=== PATIENT | female | born 1990 | race African-American/Black ===

== ENCOUNTER 2019-11-26 02:02 | Emergency (ER) | payer SELFPAY ==
--- NOTE | 2019-11-26 02:39 | ER ---
Nurse's Notes [facility] Name: Sunitha Alonso Age: 29 yrs Sex: Female : 1990 Arrival Date: 11/26/2019 Time: 02:09 Bed 7 Private MD: Diagnosis: Other abdominal pain Presentation: 11/25 02:00 Chief complaint: EMS states: patient complaint of stomach pain sharp stabbing pain rr5 started 45 minutes prior to arrival. she is 16 weeks . this her 7th 4 alive. 02:00 Coronavirus screen: The patient has NOT traveled to [place] in the past 14 days. Proceed rr5 with normal triage procedures. Ebola Screen: Patient negative for fever greater than or equal to 101.5 degrees Fahrenheit, and additional compatible Ebola Virus Disease symptoms Patient denies exposure to infectious person. Patient denies travel to an Ebola-affected area in the 21 days before illness onset. Initial Sepsis Screen: Does the patient meet any 2 criteria? No. Patient's initial sepsis screen is negative. Does the patient have a suspected source of infection? No. Patient's initial sepsis screen is negative. Risk Assessment: Do you want to hurt yourself or someone else? Patient reports no desire to harm self or others. 02:00 Method Of Arrival: EMS: [facility] rr5 02:00 Acuity: DAPHNE 3 rr5 02:00 Onset of symptoms was November 26, 2019. 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 - Social history:: Smoking status: unknown Patient/guardian denies using alcohol, street drugs. Screenin:25 Abuse screen: Denies threats or abuse. Denies injuries from another. Nutritional rr5 screening: No deficits noted. Tuberculosis screening: No symptoms or risk factors identified. Fall Risk None identified. Total Parisi Fall Scale indicates No Risk (0-24 pts). Assessment: 02:00 General: Appears in no apparent distress. uncomfortable, Behavior is calm, cooperative, rr5 appropriate for age. 02:00 Reassessment:. Pain: Complains of pain in abdomen Pain does not radiate. Pain currently rr5 is 8 out of 10 on a pain scale. Quality of pain is described as sharp, stabbing, Pain began gradually, 1 hour ago. Is intermittent. Neuro: Level of Consciousness is awake, alert, obeys commands, Oriented to person, place, time, situation, Appropriate for age. Cardiovascular: Capillary refill < 3 seconds Patient's skin is warm and dry. Respiratory: Airway is patent Respiratory effort is even, unlabored, Respiratory pattern is regular, symmetrical. GI: Abdomen is round Bowel sounds present X 4 quads. Abd is soft X 4 quads Reports lower abdominal pain, upper abdominal pain, Patient currently denies nausea, vomiting. : Denies pain vaginal bleeding. EENT: No signs and/or symptoms were reported regarding the EENT system. Derm: Skin is intact, is healthy with good turgor, Skin temperature is warm. Musculoskeletal: Circulation, motion, and sensation intact. Capillary refill < 3 seconds. 02:20 Reassessment: ultrasound at bedside done by dr. stanley. rr5 02:48 Reassessment: Patient appears in no apparent distress at this time. Patient is alert, rr5 oriented x 3, equal unlabored respirations, skin warm/dry/pink. discharge instruction given and explained without complaints made. Vital Signs: 02:00 BP 120 / 84; Pulse 79; Resp 16; Temp 98.5; Pulse Ox 99% ; Weight 68.04 kg; Height 5 ft. rr5 5 in. (165.10 cm); Pain 8/10; 02:40 BP 117 / 70; Pulse 75; Resp 18; Pulse Ox 99% on R/A; rr5 02:00 Body Mass Index 24.96 (68.04 kg, 165.10 cm) rr5 Vitals: 02:24 Heart Tones 140 bpm . rr5 ED Course: 02:05 Arm band placed on right wrist. rr5 02:09 Patient arrived in ED. rr5 02:10 Patient has correct armband on for positive identification. Placed in gown. Bed in low rr5 position. Call light in reach. 02:10 Pulse ox on. NIBP on. rr5 02:12 Vince Sutton PA is PHCP. [facility] 02:12 Massimo Stanley MD is Attending Physician. mamadou 02:13 Triage completed. rr5 02:15 Boston Sue, RN is Primary Nurse. rr5 02:30 Urine collected: clean catch specimen, clear. rr5 02:48 No provider procedures requiring assistance completed. Patient did not have IV access rr5 during this emergency room visit. Administered Medications: No medications were administered Outcome: 02:38 Discharge ordered by MD. jm 02:48 Discharged to home ambulatory, with family. rr5 02:48 Condition: stable 02:48 Discharge instructions given to patient, Instructed on discharge instructions, follow up and referral plans. Demonstrated understanding of instructions, follow-up care. 02:52 Patient left the ED. rr5 Signatures: Vince Sutton PA PA jmm Roque, Raymond, RN RN rr5
--- NOTE | 2019-11-26 02:39 | EDPHYS ---
Physician Documentation [facility] Name: Sunitha Alonso Age: 29 yrs Sex: Female : 1990 Arrival Date: 11/26/2019 Time: 02:09 Bed 7 Private MD: ED Physician Massimo Stanley HPI: 11/25 02:12 This 29 yrs old Female presents to ER via EMS with complaints of Abdominal Pain. [facility] 02:12 The patient presents with abdominal pain. Onset: The symptoms/episode began/occurred jmm acutely, just prior to arrival. The symptoms do not radiate. Associated signs and symptoms: Pertinent negatives: nausea and vomiting, diarrhea, fever, vomiting. The symptoms are described as achy, sharp. Modifying factors: The symptoms are alleviated by nothing, the symptoms are aggravated by. The patient has experienced similar episodes in the past. This is a 29 year old that presents to the ED with complaints of diffuse abdominal pain which awoke her just prior to arrival. patient states pain is similar, but not as intense, as a previous miscarriage. Patient denies vomiting, denies diarrhea, denies fever, denies vaginal bleeding, denies dysuria. . 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 - Social history:: Smoking status: unknown Patient/guardian denies using alcohol, street drugs. ROS: 02:12 Constitutional: Negative for fever, chills, and weight loss, Cardiovascular: Negative jmm for chest pain, palpitations, and edema, Respiratory: Negative for shortness of breath, cough, wheezing, and pleuritic chest pain. 02:12 Abdomen/GI: Positive for abdominal pain. 02:12 All other systems are negative. Exam: 02:12 Constitutional: This is a well developed, well nourished patient who is awake, alert, jmm and in no acute distress. Head/Face: atraumatic. Eyes: EOMI, no conjunctival erythema appreciated ENT: Moist Mucus Membranes Neck: Trachea midline, Supple Chest/axilla: Normal chest wall appearance and motion. Cardiovascular: Regular rate and rhythm. No edema appreciated Respiratory: Normal respirations, no respiratory distress appreciated 02:12 Back: Normal ROM Skin: General appearance color normal MS/ Extremity: Moves all extremities, no obvious deformities appreciated, no edema noted to the lower extremities Neuro: Awake and alert, normal gait Psych: Behavior is normal, Mood is normal, Patient is cooperative and pleasant 02:12 Abdomen/GI: Inspection: gravid appearance, is noted, Bowel sounds: normal, Palpation: soft, in all quadrants, mild abdominal tenderness, in all quadrants. Vital Signs: 02:00 BP 120 / 84; Pulse 79; Resp 16; Temp 98.5; Pulse Ox 99% ; Weight 68.04 kg; Height 5 ft. rr5 5 in. (165.10 cm); Pain 8/10; 02:40 BP 117 / 70; Pulse 75; Resp 18; Pulse Ox 99% on R/A; rr5 02:00 Body Mass Index 24.96 (68.04 kg, 165.10 cm) rr5 Procedures: 02:24 Ultrasound: Type: OB, performed by the emergency department physician, Good rn movement, FHTs 140 BPM. Shown to patient and significant other. . MDM: 02:12 Patient medically screened. [facility] 02:36 Data reviewed: vital signs, nurses notes. Counseling: I had a detailed discussion with mamadou the patient and/or guardian regarding: the historical points, exam findings, and any diagnostic results supporting the discharge/admit diagnosis, lab results, the need for outpatient follow up, to return to the emergency department if symptoms worsen or persist or if there are any questions or concerns that arise at home. ED course: UA negative. Patient is alert and non toxic in appearance in the ED. Abdomen is soft. Normal VS. I do not currently suspect acute intraabdominal process. patient advised to follow up with pcp and otherwise given strict return precautions. patient understood and agrees with the plan of care. . 03 02:42 Order name: Urine Dipstick--Ancillary (enter results) mw2 11/25 02:13 Order name: Urine Dipstick-Ancillary (obtain specimen); Complete Time: 02:41 fanny 11/25 02:13 Order name: Heart Tones; Complete Time: 02:24 [facility] Administered Medications: No medications were administered Disposition: 03:21 Co-signature as Attending Physician, Massimo Stanley MD. rn Disposition: 11/26/19 02:38 Discharged to Home. Impression: Other abdominal pain. - Condition is Stable. - Discharge Instructions: Abdominal Pain, Adult, Abdominal Pain During . - Medication Reconciliation Form, Thank You Letter, Antibiotic Education, Prescription Opioid Use form. - Follow up: Private Physician; When: 2 - 3 days; Reason: Recheck today's complaints, Continuance of care, Re-evaluation by your physician. Signatures: Dispatcher [employer] EDWA Vince Sutton PA PA jmm Nieto, Roman, MD MD rn Roque, Raymond, RN RN rr5 Corrections: (The following items were deleted from the chart) 02:52 02:38 11/26/2019 02:38 Discharged to Home. Impression: Other abdominal pain. Condition rr5 is Stable. Forms are Medication Reconciliation Form, Thank You Letter, Antibiotic Education, Prescription Opioid Use. Follow up: Private Physician; When: 2 - 3 days; Reason: Recheck today's complaints, Continuance of care, Re-evaluation by your physician. mamadou
[2019-11-26 03:47] LABS: Urine Blood NEGATIVE (NEG); Urine Glucose NEGATIVE (NEG); Urine Protein NEGATIVE (NEG); Urine Specific Gravity >1.030 (1.005-1.030)
== END 2019-11-26 02:52 | disposition home or self-care (01) ==
LOC: ER 02:02
DX: O26.892 Other specified pregnancy related conditions, second trimester (principal); Z3A.16 16 weeks gestation of pregnancy
CPT/HCPCS: 81003; 99284

== ENCOUNTER 2020-04-08 19:59 | Inpatient (IN) | payer OTHER, SELFPAY ==
[2020-04-08] MEDS ORDERED: PENICILLIN 5 MU in NA CHLORIDE 0.9% 100 ML IV ONE (20:51)
[2020-04-08] MEDS ORDERED: BUTORPHANOL 1 MG/ML INJ IV PRN (20:51)
[2020-04-08] MEDS ORDERED: MEPERIDINE HCL 25 MG/ML SYR IV PRN (20:51)
[2020-04-08] MEDS ORDERED: METHYLERGONOVINE 0.2MG/ML AMP IM PRN (20:51)
[2020-04-08] MEDS ORDERED: MIDAZOLAM HCL 2 MG/2 ML INJ IV PRN (20:51)
[2020-04-08] MEDS ORDERED: PROMETHAZINE INJ 25 MG/ML AMP IM PRN (20:51)
[2020-04-08] MEDS ORDERED: Ringers Lactate 1,000 ML IV PRN (20:51)
[2020-04-08] MEDS ORDERED: Ringers Lactate 1,000 ML IV SCH (21:00)
[2020-04-08] MEDS ORDERED: OXYTOCIN/LR 20 UNIT/1,000 ML BAG IV ONE (21:10)
[2020-04-08 21:52] LABS: Basophils % 0.6 % (0-1.3); Hematocrit 29.8 % (36.0-45.0); Lymphocytes % 14.7 % (15.3-44.8); MPV 8.5 fL (7.6-11.3); RBC Red Blood Cell Count 4.25 M/uL (3.86-4.86)
[2020-04-08 23:02] VITALS: BMI 22.4
[2020-04-09] MEDS ORDERED: ROPIVACAINE HCL 0.2% 20ML AMP IV PRN (00:43)
[2020-04-09] MEDS ORDERED: ROPIVACAINE HCL 100 ML IV PRN (00:43)
[2020-04-09] MEDS ORDERED: NA CHLORIDE 0.9% 100 ML IV ONE (01:10)
[2020-04-09] MEDS ORDERED: PENICILLIN G POT 5 MU/VIAL IV ONE (01:10)
[2020-04-09] MEDS ORDERED: FENTANYL CITR 100 MCG/2 ML ONE (01:36)
[2020-04-09 01:45] LABS: RPR (Rapid Plasma Reagin) NON-REACT (NON-REACT)
[2020-04-09] MEDS ORDERED: LIDOCAINE 1% MPF 30 ML VIAL ONE (02:33)
[2020-04-09] MEDS ORDERED: BISACODYL 10 MG RECTAL SUPP PR PRN (03:02)
[2020-04-09] MEDS ORDERED: DIPHENHYDRAMINE 25 MG TAB/CAP PO PRN (03:02)
[2020-04-09] MEDS ORDERED: Oxycodone HCl/Acetaminophen 1 TAB TAB PO PRN (03:02)
[2020-04-09] MEDS ORDERED: ACETAMINOPHEN 500 MG TAB PO PRN (03:02)
[2020-04-09] MEDS ORDERED: DOCUSATE NA/SENNA CONC 1 TAB PO PRN (03:02)
--- NOTE | 2020-04-09 03:49 | OP ---
Surgeon: Tano Fernandes MD A 29-year-old 7, para 4, by her estimate 35 weeks 5 days. The patient reported care in [place], but no records can be found to verify this. Drop-in lab ordered. The patient was 3 cm. Rupture of membranes, vertex presenting. Started on penicillin prophylaxis. Had epidural anesthesia. After reaching complete second stage of about 15 to 20 minutes or less, spontaneous vaginal delivery of a 6 pounds 13 ounces male infant, Apgars 9 and 9. No episiotomy. No laceration. Schultze delivery of the placenta. Uterus contracted down well. Estimated blood loss 350 cc at this point. All labs pending at this point. COVID testing performed. COVID precautions during delivery taken. Final Diagnoses: Intrauterine gestation, 35 weeks 5 days according to the patient, probably further _along according to gestational age assessment on the baby, spontaneous vaginal delivery, epidural anesthesia, penicillin prophylaxis. ROMAIN/RAIELLE Voice ID: [id number] Report ID: [id number] TONY
[2020-04-09] MEDS ORDERED: OXYTOCIN/LR 20 UNIT/1,000 ML BAG IV SCH (04:00)
--- NOTE | 2020-04-09 04:13 | DS ---
A 29-year-old, 7, para 4, we can find no care. She says she was seen in [facility] in [place]. Comes in at, according to her, 35 weeks and 5 days or so with ruptured membranes, clear fluid . 3 cm, vertex presenting, christine lightly at that point. The patient declined to go to [facility] An [facility] or [place], therefore was admitted, started on penicillin prophylaxis as her beta strep stat us was unknown. Family History: Noncontributory. Allergies: NO ALLERGIES. Physical Examination: Vital Signs: Stable. Heart and lungs: Basically clear. Breasts: Not examined. Abdomen: Term size. Extremities: Clear without edema, cyanosis, or clubbing. Admit for delivery. ROMAIN/ARIELLE Voice ID: [id number] Report ID: [id number]
[2020-04-09] MEDS ORDERED: OXYTOCIN/LR 20 UNIT/1,000 ML BAG IV ONE (04:54)
[2020-04-09 07:12] LABS: Barbiturates NEGATIVE (NEGATIVE); Benzodiazepines NEGATIVE (NEGATIVE); Cocaine NEGATIVE (NEGATIVE); METHAMPHETAM NEGATIVE (NEGATIVE); Methadone NEGATIVE (NEGATIVE); Opiates NEGATIVE (NEGATIVE); Phencyclidine NEGATIVE (NEGATIVE); THC Cannibis NEGATIVE (NEGATIVE)
[2020-04-09] MEDS: Oxycodone HCl/Acetaminophen 1 TAB TAB PO PRN ×2 (07:30→20:45)
[2020-04-09] MEDS: METHYLERGONOVINE 0.2 MG TAB PO PRN ×4 (08:15→20:30)
--- NOTE | 2020-04-09 08:49 | PN ---
A 29-year-old multiparous female, post . The patient has been afebrile. Vital signs have been normal. According to nursing report, the lochia was slightly heavier than normal. She was given 1 dose of Methergine. We will continue her on p.o. Methergine but the bleeding is normal at this point . Full instructions given. She is Rh positive. No other lab is available at this point. She will be observed today, probably dismissed tomorrow. control discussed with the patient and she says she does not want to get again. We will ambulate her and, if the bleeding is n ormal, then discontinue her IV and give her regular diet. She has no complaints or problems this richard guadalupe. ROMAIN/ARIELLE Voice ID: [id number] Report ID: [id number]
[2020-04-09] MEDS: IBUPROFEN 200 MG TAB PO PRN ×2 (11:00→17:00)
[2020-04-09] MEDS ORDERED: Ringers Lactate 1,000 ML IV SCH (12:00)
[2020-04-09] MEDS ORDERED: BENZONATATE 100 MG CAP PO PRN (12:10)
--- NOTE | 2020-04-09 12:14 | P.CNS ---
Date of Consult: 04/09/20 Reason for Consult: PUI/Fever Requesting Physician: Louie Fernandes Chief Complaint: PUI/Fever History of Present Illness: A 29-year-old, 7, para 4, we can find no care. She says she was seen in [facility] in [place]. Comes in at, according to her, 35 weeks and 5 days or so with ruptured membranes, clear fluid. 3 cm, vertex presenting, christine lightly at that point. The patient declined to go to [facility] or [place], therefore was admitted, started on penicillin prophylaxis as her beta strep status was unknown. Patient is now post . The patient started with fever of greater than 100. Fever has been controlled with Tylenol and last reading was 99.8. Vital signs have been normal. According to nursing report, the lochia was slightly heavier than normal. She was given 1 dose of Methergine. We will continue her on p.o. Methergine but the bleeding is normal at this point. Full instructions given. She is Rh positive. No other lab is available at this point. control discussed with the patient and she says she does not want to get again. We will ambulate her and, if the bleeding is normal, then discontinue her IV and give her regular diet. Hospitalist were consulted after patient developed a fever and a cough. We will screen patient for influenza a and B, strep, UA with urine culture, and blood cultures. Patient has already been screened for Covid with results pending. The etiology of fever and cough are unknown at this time. Will start patient on Tessalon Perles for the cough as supportive care. Fevers controlled with Tylenol and patient is in no distress. She is alert and oriented x3 and in good spirits. - Past Medical/Surgical History Diabetic: No -: none -: : 2006, 2010, 2015 & 2017 - Social History Smoking Status: Never smoker Alcohol use: No CD- Drugs: No Caffeine use: No Place of Residence: Home <Lawrence Pillai - Last Filed: 04/09/20 12:41> - Past Medical/Surgical History Past Medical History: Patient denies medical history Psychosocial/ Personal History: Patient lives at home <Jones Diaz - Last Filed: 04/09/20 18:15> Allergies No Known Allergies Allergy (Unverified 04/08/20 20:48) Home Medications: NK [No Home Meds] 04/09/20 Review of Systems General: Fever Eyes: Unremarkable ENT: Unremarkable Respiratory: Cough Cardiovascular: Unremarkable Gastrointestinal: Unremarkable Genitourinary: Unremarkable Musculoskeletal: Unremarkable Integumentary: Unremarkable Neurological: Unremarkable <Lawrence Pillai - Last Filed: 04/09/20 12:41> Physical Examination Temp Pulse Resp BP Pulse Ox 99.9 F 73 17 153/86 H 99 04/09/20 11:31 04/09/20 11:31 04/09/20 11:31 04/09/20 11:31 04/09/20 11:31 General: Alert, In no apparent distress, Oriented x3 HEENT: Atraumatic, Normocephalic, PERRLA Neck: Supple, Other (Trachea midline) Respiratory: Clear to auscultation bilaterally, Normal air movement Cardiovascular: No edema, Normal pulses, Regular rate/rhythm, Normal S1 S2 Capillary refill: <2 Seconds Gastrointestinal: Normal bowel sounds, Soft and benign, Non-distended Musculoskeletal: No clubbing, No swelling, No contractures, No erythema Integumentary: No rashes, No breakdown, No significant lesion Neurological: Normal gait, Normal speech, Normal strength at 5/5 x4 extr, Normal tone Laboratory Data (last 24 hrs) 04/08/20 20:45: WBC 6.9, Hgb 9.4 L, Hct 29.8 L, Plt Count 157 <Lawrence Pillai - Last Filed: 04/09/20 12:41> Temp Pulse Resp BP Pulse Ox 98.8 F 66 16 111/67 99 04/09/20 15:00 04/09/20 15:00 04/09/20 15:00 04/09/20 15:00 04/09/20 11:31 Laboratory Data (last 24 hrs) 04/09/20 12:20: WBC 8.1 D, Hgb 9.1 L, Hct 30.0 L, Plt Count 141 L 04/08/20 20:45: WBC 6.9, Hgb 9.4 L, Hct 29.8 L, Plt Count 157 <Jones Diaz - Last Filed: 04/09/20 18:15> Conclusions/Impression: Impression: : Managed by resident care provider Fever with cough of unknown etiology: Plan: : Managed by resident care provider Fever with cough of unknown etiology: Patient states she had care at [facility] but there is no record of patient attending or being seen at this facility. She is developed a fever and cough of unknown etiology. We will empirically screen patient for UA with urine culture, influenza A and B, strep and blood culture x2 from 2 different sites. Fever is controlled with Tylenol and patient is in no distress. She is at room air with adequate oxygenation. Patient has updated lab work ordered for noon today and will review new labs once results are available. Time Spent Managing Pts care (In Minutes): 55 <Lawrence Pillai - Last Filed: 04/09/20 12:41> Conclusions/Impression: Case discussed at length with PA. Agree with evaluation, assessment and plan of care. Results from COVID testing was positive. Blood, urine cultures also obtained. Patient without significant respiratory symptoms. Patient appears asymptomatic other than the fever. Continue treat Tylenol. No need for IV Decadron or other measures. Room-air saturations within normal range. Will monitor Overnite. Patient can likely be discharged tomorrow with quarantine for at least 14 days. Patient will need to continue with CDC guidelines. Patient will need to continue with social distancing, face mask and hand washing. Health department will follow up closely as an outpatient. Case discussed at length with gynecology Dr. Fernandes, who delivered the patient. Case also discussed with supervisor whipped topping Dr. Benavides. She will further evaluate the baby. She may consider testing for COVID as well. Await recommendations from pediatrics. Anticipate discharge tomorrow. I will turn over the service to the hospitalist team. I will go over the plan of care with him. <Jones Diaz - Last Filed: 04/09/20 18:15>
[2020-04-09 12:46] LABS: Basophils % 0.2 % (0-1.3); Lymphocytes % 12.3 % (15.3-44.8); MPV 8.4 fL (7.6-11.3); RBC Red Blood Cell Count 4.22 M/uL (3.86-4.86)
[2020-04-09 13:11] LABS: Urine White Blood Cell Casts OK
[2020-04-09 13:12] LABS: Anisocytosis 2+; Blood Morphology Comment NOTED (NOT SEEN)
[2020-04-09 13:15] LABS: Platelet Estimate ADEQ
[2020-04-10] MEDS ORDERED: Tdap (Diph,Pertuss(Acell),Tet Vac) 0.5 ML SYR IMVAC ONE (07:26)
[2020-04-10 11:18] VITALS: BP 114/65; TEMP 97.9
--- NOTE | 2020-04-10 11:46 | DS ---
A 29-year-old multiparous female, previous full-term , basically no care. Best est imates 35 weeks 5 days; however, at the time of delivery, baby looked like it was further advanced. The patient is Rh positive. Other labs are still pending. She does not know any of her lab reports. We checked with [facility] and they have no record of the same, although she insists she has Medicaid car d and has been seen. The patient delivered uneventfully. At that time was noted to have a fever. C OVID testing had shown positive. The patient has no symptoms whatsoever other than the fever and now the last 6 readings have all been normal, well under 100. She has been seen by Dr. Diaz. They fooet ve done blood cultures. They thought they might get a chest x-ray, but that is unknown at this point and they are essentially caring for her COVID status. She will be dismissed this morning. She know s that she should not go with the people, especially older people in the family. She should contact [facility] and they will then take care of her in the period. We have offered her Tdap administ ration and full instructions have been given. Final Diagnoses: Drop-in with essentially no care, uneventful delivery, positive COVID stat us. follow up with [facility] and hospital physician, Dr. Diaz. ROMAIN/ARIELLE Voice ID: [id number] Report ID: [id number]
[2020-04-10] MEDS: IBUPROFEN 200 MG TAB PO PRN (13:25)
[2020-04-10] MEDS ORDERED: IBUPROFEN 600 MG TAB ONE (13:35)
[2020-04-10] MEDS ORDERED: IBUPROFEN 600 MG TAB PO PRN (15:00)
== END 2020-04-10 15:50 | disposition home or self-care (01) | DRG 805 ==
LOC: L&D 19:59 → 2ND-WC 20:50
PROVIDERS: ADMIT Specialist; ATTEND Specialist
PROC: 10E0XZZ Delivery of Products of Conception, External Approach (ICD-10-PCS; principal; 2020-04-09)
DX: O60.14X0 Preterm labor third trimester with preterm delivery third trimester, not applicable or unspecified (principal); U07.1 COVID-19; Z37.0 Single live birth; O42.013 Preterm premature rupture of membranes, onset of labor within 24 hours of rupture, third trimester; O99.824 Streptococcus B carrier state complicating childbirth; Z3A.35 35 weeks gestation of pregnancy
CPT/HCPCS: 36415; 80307; 85025; 86592; 86901; 87040; 87070; 87081; 87340; 87804; 90471; 90715; J0595; J2210; J2550; J2590; J2795; J3010; J7120; U0002

== ENCOUNTER 2021-01-06 07:47 | Emergency (ER) | payer OTHER ==
--- OUTSIDE RECORDS SUMMARY | 2021-01-06 07:49 | XMS REPORT | Continuity of Care Document ---
:1990 Author Organization [facility] t Address [address] [place] [address] Care Team Providers Name Role Phone Radiology Attending Clinician Unavailable Doctor Unassigned, Name Attending Clinician Unavailable Problems This patient has no known problems. Allergies, Adverse Reactions, Alerts This patient has no known allergies or adverse reactions. Medications This patient has no known medications. Procedures This patient has no known procedures. Encounters Start End Encounter Admission Attending Care Care Encounter Source Date/Time Date/Time Type Type Clinicians Facility Department ID 2020-12-15 2020-12-15 [facility] Radiology [facility] [id number] 09:33:58 23:59:00 Encounter [place] [id number] [place] [id number] [place] [id number] 2020-12-15 2020-12-15 [facility] Radiology [facility] [id number] 09:33:41 23:59:00 Encounter [place] [id number] [place] [id number] [place] [id number] 2020-12-15 2020-12-15 [place] [id number] 00:00:00 00:00:00 Only Unassigned, [place] [id number] [place] [facility] [id number] Results This patient has no known results.
--- NOTE | 2021-01-06 11:05 | EDPHYS ---
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 - Social history:: Smoking status: Patient denies any tobacco usage or history of. Vital Signs: 07:59 BP 96 / 80; Pulse 96; Resp 18; Temp 98.4(O); Pulse Ox 98% on R/A; Weight 59.42 kg; em Height 5 ft. 5 in. (165.10 cm); Pain 0/10; 09:27 BP 99 / 66; Pulse 71; Resp 18; Pulse Ox 100% on R/A; bw 10:46 BP 119 / 89; Pulse 74; Resp 18; Pulse Ox 100% on R/A; bw 07:59 Body Mass Index 21.80 (59.42 kg, 165.10 cm) em MDM: 11:04 Patient medically screened. [facility] 01/06 08:25 Order name: Flu; Complete Time: 10:52 kdr 01/06 08:25 Order name: Strep; Complete Time: 08:55 kdr 01/06 09:45 Order name: Throat Culture; Complete Time: 08:55 EDMS Administered Medications: No medications were administered Disposition: 01/06/21 11:04 Discharged to Home. Impression: Viral infection of unspecified site, Acute upper respiratory infection, unspecified, Cough, Acute laryngopharyngitis. - Condition is Stable. - Discharge Instructions: Upper Respiratory Infection, Adult, [id number], Cough, Adult, [id number], Viral Respiratory Infection, Wwzf-Sm-[id number]. - Prescriptions for Albuterol Sulfate 90 mcg/actuation - inhale 1-2 puff by INHALATION route every 4-6 hours; 1 Inhaler. Tessalon Perles 100 mg Oral Capsule - take 1 capsule by ORAL route every 8 hours As needed; 15 capsule. - Medication Reconciliation Form, Thank You Letter form. - Follow up: Private Physician; When: 2 - 3 days; Reason: If symptoms return, Further diagnostic work-up, Recheck today's complaints, Continuance of care, Re-evaluation by your physician. - Problem is new. - Symptoms have improved. Addendum: 01/25/2021 08:55 Addendum: CC: Sore throat and fever, HPI: The patient reports that for the last 3-[address] days she has had fever to 102 and sore throat with mild non-productive cough. ROS: The patient reports that she had had a fever of 102, a mild sore throat and a dry cough. All other 10 point ROS are negative, MDM: The patient was non-acute in the ED and as all studies were negative, the patient was discharged in good condition. She was happy with the care received and the plan for discharge and follow-up. Signatures: Dispatcher [employer] EDAsif Godinez MD MD kdr Munoz, Edgar, CALVIN RN Vernell Yang RN RN Corrections: (The following items were deleted from the chart) 01/06 11:20 11:04 01/06/2021 11:04 Discharged to Home. Impression: Viral infection of unspecified bw site; Acute upper respiratory infection, unspecified; Cough; Acute laryngopharyngitis. Condition is Stable. Forms are Medication Reconciliation Form, Thank You Letter, Antibiotic Education, Prescription Opioid Use. Follow up: Private Physician; When: 2 - 3 days; Reason: If symptoms return, Further diagnostic work-up, Recheck today's complaints, Continuance of care, Re-evaluation by your physician. Problem is new. Symptoms have improved. kdr
--- NOTE | 2021-01-06 11:05 | ER ---
Nurse's Notes [facility] Name: Sunitha Alonso Age: 30 yrs Sex: Female : 1990 Arrival Date: 01/06/2021 Time: 07:51 Bed 17 Private MD: Diagnosis: Viral infection of unspecified site;Acute upper respiratory infection, unspecified;Cough;Acute laryngopharyngitis Presentation: 01/06 07:59 Chief complaint: Patient states: sore throat, fever of 102 and dry cough for 3-4 days, em has taken OTC medicine without any relief. Coronavirus screen: Client denies travel out of the [place] in the last 14 days. Ebola Screen: Patient negative for fever greater than or equal to 101.5 degrees Fahrenheit, and additional compatible Ebola Virus Disease symptoms Patient denies exposure to infectious person. Patient denies travel to an Ebola-affected area in the 21 days before illness onset. No symptoms or risks identified at this time. Initial Sepsis Screen: Does the patient meet any 2 criteria? HR > 90 bpm. No. Patient's initial sepsis screen is negative. Does the patient have a suspected source of infection? No. Patient's initial sepsis screen is negative. Risk Assessment: Do you want to hurt yourself or someone else? Patient reports no desire to harm self or others. Onset of symptoms was January 06, 2021. 07:59 Method Of Arrival: Ambulatory em 07:59 Acuity: DAPHNE 4 em Triage Assessment: 11:11 General: Appears in no apparent distress. uncomfortable, Behavior is calm, cooperative, bw appropriate for age. 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 - Social history:: Smoking status: Patient denies any tobacco usage or history of. Screenin:27 Abuse screen: Denies threats or abuse. Nutritional screening: No deficits noted. bw Tuberculosis screening: No symptoms or risk factors identified. Fall Risk None identified. Assessment: 09:27 Pain: Complains of pain in sore throat. Neuro: No deficits noted. Cardiovascular: No bw deficits noted. Respiratory: Reports sore throat Airway is patent Respiratory effort is even, unlabored, Breath sounds are clear. EENT: Throat is reddened. 10:46 Reassessment: Patient appears in no apparent distress at this time. Patient and/or bw family updated on plan of care and expected duration. Pain level reassessed. Patient is alert, oriented x 3, equal unlabored respirations, skin warm/dry/pink. Vital Signs: 07:59 BP 96 / 80; Pulse 96; Resp 18; Temp 98.4(O); Pulse Ox 98% on R/A; Weight 59.42 kg; em Height 5 ft. 5 in. (165.10 cm); Pain 0/10; 09:27 BP 99 / 66; Pulse 71; Resp 18; Pulse Ox 100% on R/A; bw 10:46 BP 119 / 89; Pulse 74; Resp 18; Pulse Ox 100% on R/A; bw 07:59 Body Mass Index 21.80 (59.42 kg, 165.10 cm) ED Course: 07:51 Patient arrived in ED. mr 08:00 Triage completed. em 08:00 Arm band placed on. em 08:17 Asif Thomson MD is Attending Physician. kdr 08:29 Vernell Yang, CALVIN is Primary Nurse. 09:00 Flu Sent. [facility] 09:00 Strep Sent. [facility] 09:01 Flu and/or RSV swab sent to lab. Strep swab sent to lab. [facility] 09:27 Patient has correct armband on for positive identification. Call light in reach. Side bw rails up X 1. Pulse ox on. NIBP on. Warm blanket given. 09:27 No provider procedures requiring assistance completed. Patient did not have IV access bw during this emergency room visit. Administered Medications: No medications were administered Outcome: 11:04 Discharge ordered by . kdr 11:09 Discharged to home ambulatory. 11:09 Condition: stable 11:09 Discharge instructions given to patient. 11:20 Patient left the ED. Signatures: Asif Thomson MD MD [facility] Allyssa Sandoval SparksDeejay RN RN Adela Cassidy [facility] Vernell Yang RN RN
[2021-01-06 11:28] VITALS: TEMP 98.4
[2021-01-06 11:29] VITALS: O2SAT 100
[2021-01-06 11:31] VITALS: BP 119/89
== END 2021-01-06 11:20 | disposition home or self-care (01) ==
LOC: ER 07:47
DX: J06.0 Acute laryngopharyngitis (principal)
CPT/HCPCS: 87070; 87081; 87804; 99283